=== PATIENT | male | born 1975 | race Caucasian/White ===

== ENCOUNTER 2017-01-10 09:55 | Emergency (ER) | payer OTHER ==
[2017-01-10] MEDS ORDERED: Zofran 4 MG/2 ML VIAL IV ONE (10:39)
[2017-01-10] MEDS ORDERED: PROTONIX 40 MG IV IV ONE ×2 (10:39→10:44)
[2017-01-10] MEDS ORDERED: Sodium Chloride 0.9% 1000 ML 1,000 ML IV STA (10:39)
[2017-01-10] MEDS ORDERED: Sodium Chloride 0.9% 1000 ML 1,000 ML ONE (10:44)
[2017-01-10] MEDS ORDERED: Zofran 4 MG/2 ML VIAL ONE (10:44)
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
[2017-01-10 10:49] LABS: BASOPHIL % 0.2 % (0.0-0.4); Eosinophil % 0.5 % (0.00-5.0); Granulocytes % 83.2 % (36.0-66.0); Lymphocytes % 4.8 % (24.0-44.0); Mean Cell Volume 96.3 fl (78-100); Mean Platelet Volume 10.4 fl (6-9.5); Monocytes % 11.3 % (0.0-12.0); Platelet Count 330 K/mm3 (150-450); Red Blood Count 4.61 M/mm3 (4.1-5.6); Red Cell Distribution Width 14.2 % (11.5-14.0); White Blood Count 13.1 K/mm3 (4.0-10.5)
[2017-01-10 11:26] LABS: ALBUMIN 3.9 g/dL (3.4-5.0); ALKALINE PHOSPHATASE 95 U/L (46-116); ANION GAP 11.5 MEQ/L (5-15); BILIRUBIN,TOTAL 0.3 mg/dL (0.2-1.0); BLOOD UREA NITROGEN 15 mg/dL (9-20); Carbon Dioxide 25.5 mEq/L (21-32); Glucose 106 MG/DL (70-110); LIPASE 100 U/L (73-393); SGOT/AST 17 U/L (15-37); SGPT/ALT 17 U/L (12-78); Total Protein 7.6 gm/dL (6.4-8.2)
[2017-01-10 11:59] VITALS: O2SAT 97
[2017-01-10 12:08] LABS: COMPLETE URINE MICROSCOPIC? YES; Collection Type CCMS; Ph 6.5 (5-6)
[2017-01-10] MEDS ORDERED: TORAdol 30 mg Injection IV ONE (12:08)
[2017-01-10] MEDS ORDERED: TORAdol 30 mg Injection ONE (12:09)
[2017-01-10 13:09] LABS: Bacteria FEW /HPF (NEGATIVE); Epithelial Cells RARE /HPF (FEW)
[2017-01-10 13:15] VITALS: BP 122/63; PULSE 81
[2017-01-10 17:43] LABS: CHLORIDE 105 mEq/L (98-107); SODIUM 142 mEq/L (136-145)
--- NOTE | 2017-01-10 20:46 | XRAY ---
Indication: Right flank pain. Multiple contiguous axial images obtained through the abdomen and pelvis using 80 cc Isovue-370 contrast only. Comparison: October 09, 2013. Lung bases clear. Heart is not enlarged. Noncontrasted stomach and bowel loops appear nonobstructed. Mid abdomen small bowel loops are now fluid distended with wall thickening/enhancement and minimal fluid leveling favor enteritis. Normal appendix. No free fluid/air. Stable nonobstructing right renal micro-calculi, hepatic cyst, benign chunky prostate calcifications, and previous splenectomy. Remaining liver, gallbladder, pancreas, adrenal glands, kidneys, ureters, and bladder appear unremarkable. Minimal aortic calcifications. No AAA or pathological retroperitoneal lymphadenopathy. Osseous structures intact. Impression: 1. Mid abdominal fluid distended small bowel loops with wall thickening/enhancement and fluid leveling favor enteritis. 2. Stable nonobstructing right renal micro-calculi and hepatic cyst. Comment: Preliminary interpretation was made by C. No discrepancy. CTDI 23.68
== END 2017-01-10 13:15 | disposition home or self-care (01) ==
LOC: ED 09:55
DX: N20.0 Calculus of kidney (principal); K52.9 Noninfective gastroenteritis and colitis, unspecified; R10.31 Right lower quadrant pain; R10.9 Unspecified abdominal pain; R11.0 Nausea; R10.13 Epigastric pain; R19.7 Diarrhea, unspecified
CPT/HCPCS: 36000; 36415; 74177; 80053; 81000; 82150; 83690; 85025; 96360; 96374; 96375; 99284; J1885; J2405

== ENCOUNTER 2020-02-01 06:32 | Emergency (ER) | payer OTHER ==
[2020-02-01] MEDS ORDERED: Hydromorphone 1 mg/ml Ampule IV ONE (06:39)
[2020-02-01] MEDS ORDERED: Sodium Chloride 0.9% 1000 ML 1,000 ML IV STA (06:39)
[2020-02-01] MEDS ORDERED: TORAdol 30 mg Injection IV ONE (06:39)
[2020-02-01] MEDS ORDERED: Zofran 4 MG/2 ML VIAL IV ONE (06:39)
--- NOTE | 2020-02-01 06:49 | ERPHSYRPT ---
- History of Present Illness Historian: patient Exam Limitations: no limitations Timing/Duration: today Activities at Onset: none Quality: stabbing, throbbing Abdominal Pain Onset Location: RLQ, flank (Right) Pain Radiation: groin Severity of Pain-Max: severe Severity of Pain-Current: severe Modifying Factors: Improves With: nothing Associated Symptoms: nausea Previous symptoms: same symptoms as today Hx Tetanus, Diphtheria Vaccination/Date Given: Yes (unknown) Hx Influenza Vaccination/Date Given: Yes Hx Pneumococcal Vaccination/Date Given: No <KAEL JONES - Last Filed: 02/01/20 06:43> <JAY COURTNEY - Last Filed: 02/01/20 08:27> - History of Present Illness Time Seen by Provider: 02/01/20 06:44 Physician History: PATIENT IS 44 YO MALE WITH HX OF MULTIPLE URETERAL STONES PRESENTS WITH R FLANK PAIN OF SUDDEN ONSET THIS AM AT WORK. SOME NAUSEA, NO F,C,S. NO HEMATURIA. PAIN IS 10/10. (KAEL JONES) Allergies/Adverse Reactions: No Known Drug Allergies Allergy (Unverified 02/01/20 06:56) Home Medications: Levothyroxine Sodium 100 Mcg [Synthroid 100 Mcg] 100 mcg PO DAILY 01/10/17 [History] Travel Risk - International Travel Have you traveled outside of the country in past 3 weeks: No Have you or anyone close to you been diagnosed with or: No Do your reside in a community with a known COVID-19 case?: No - Coronavirus Screening Has patient experienced Coronavirus symptoms: No <KAEL JONES - Last Filed: 02/01/20 06:43> - Review of Systems Constitutional: No Fever, No Chills Eyes: No Symptoms Ears, Nose, & Throat: No Symptoms Respiratory: No Cough, No Dyspnea Cardiac: No Chest Pain, No Edema, No Syncope Abdominal/Gastrointestinal: Abdominal Pain, Nausea, No Vomiting, No Diarrhea Genitourinary Symptoms: Flank Pain, No Dysuria Musculoskeletal: No Back Pain, No Neck Pain Skin: No Rash Neurological: No Dizziness, No Focal Weakness, No Sensory Changes Psychological: No Symptoms Endocrine: No Symptoms All Other Systems: Reviewed and Negative <KAEL JONES - Last Filed: 02/01/20 06:43> - Past Medical History Pertinent Past Medical History: Yes Respiratory History: Sleep Apnea Endocrine Medical History: Hypothyroidism Other Medical History: kidney stones. bowel obstructions - Past Surgical History Past Surgical History: Yes Gastrointestinal: Exploratory Laparoscopy Other Surgical History: spleenectomy - Social History Smoking Status: Former smoker Exposure to second hand smoke: No Drug Use: none Patient Lives Alone: No <KAEL JONES Last Filed: 02/01/20 06:43> - Physical Exam General Appearance: no apparent distress, alert Eye Exam: PERRL/EOMI, eyes nml inspection Ears, Nose, Throat Exam: normal ENT inspection, pharynx normal, moist mucous membranes Neck Exam: normal inspection, non-tender, supple, full range of motion Respiratory Exam: normal breath sounds, lungs clear, No respiratory distress Cardiovascular Exam: regular rate/rhythm, normal heart sounds Gastrointestinal/Abdomen Exam: soft, No tenderness, No mass Back Exam: normal inspection, normal range of motion, No CVA tenderness, No vertebral tenderness Extremity Exam: normal inspection, normal range of motion, pelvis stable Neurologic Exam: alert, oriented x 3, cooperative, normal mood/affect, nml cerebellar function, sensation nml, No motor deficits Skin Exam: normal color, warm, dry <KAEL JONES - Last Filed: 02/01/20 06:43> - Nursing Vital Signs Nursing Vital Signs: Initial Vital Signs Temperature 97.4 F 02/01/20 06:38 Pulse Rate 65 02/01/20 06:38 Blood Pressure 160/97 02/01/20 06:38 O2 Sat by Pulse Oximetry 98 02/01/20 06:38 Pain Scale Pain Intensity 5 - Course Nursing assessment & vital signs reviewed: Yes <LEONARDKAEL - Last Filed: 02/01/20 06:43> Ordered Tests: Active Orders 24 hr Category Date Time Status IV Insertion STAT Care 02/01/20 06:39 Active ABDOMEN AND PELVIS W/0 CONTRAS [CT] Stat Exams 02/01/20 06:40 Taken AMYLASE Stat Lab 02/01/20 05:45 Completed CBC W DIFF Stat Lab 02/01/20 06:45 Completed CMP Stat Lab 02/01/20 05:45 Completed LIPASE Stat Lab 02/01/20 05:45 Completed Lactic Acid Stat Lab 02/01/20 05:45 Completed UA W/RFX UR CULTURE Stat Lab 02/01/20 08:03 Completed Medication Summary Discontinued Medications Generic Name Dose Route Start Last Admin Trade Name Freq PRN Reason Stop Dose Admin Hydromorphone HCl 1 mg 02/01/20 06:39 02/01/20 06:54 Hydromorphone 1 Mg/Ml Ampule IV 02/01/20 06:40 1 mg STAT ONE Administration Hydromorphone HCl Confirm 02/01/20 06:50 Hydromorphone 1 Mg/Ml Ampule Administered 02/01/20 06:51 Dose 1 mg .ROUTE .STK-MED ONE Sodium Chloride 1,000 mls @ 999 mls/hr 02/01/20 06:39 02/01/20 08:09 Sodium Chloride 0.9% 1000 Ml IV 02/01/20 07:39 Infused .Q1H1M STA Infusion Sodium Chloride Confirm 02/01/20 06:50 Sodium Chloride 0.9% 1000 Ml Administered 02/01/20 06:51 Dose 1,000 mls @ ud .ROUTE .STK-MED ONE Ketorolac Tromethamine 30 mg 02/01/20 06:39 02/01/20 06:54 Toradol 30 Mg Injection IV 02/01/20 06:40 30 mg STAT ONE Administration Ketorolac Tromethamine Confirm 02/01/20 06:50 Toradol 30 Mg Injection Administered 02/01/20 06:51 Dose 30 mg .ROUTE .STK-MED ONE Ondansetron HCl 4 mg 02/01/20 06:39 02/01/20 06:54 Zofran 4 Mg/2 Ml Vial IV 02/01/20 06:40 4 mg STAT ONE Administration Ondansetron HCl Confirm 02/01/20 06:50 Zofran 4 Mg/2 Ml Vial Administered 02/01/20 06:51 Dose 4 mg .ROUTE .STK-MED ONE Lab/Rad Data: Laboratory Result Diagrams 02/01/20 06:45 02/01/20 05:45 Laboratory Results 02/01/20 02/01/20 02/01/20 Range/Units 08:03 06:45 05:45 WBC 7.9 (4.0-10.5) K/mm3 RBC 4.16 (4.1-5.6) M/mm3 Hgb 13.8 (12.5-18.0) gm/dl Hct 40.0 L (42-50) % MCV 96.2 (78-100) fl MCH 33.2 H (26-32) pg MCHC 34.5 (32-36) g/dl RDW 14.1 H (11.5-14.0) % Plt Count 332 (150-450) K/mm3 MPV 9.9 (7.5-11.0) fl Gran % 40.4 (36.0-66.0) % Eos # (Auto) 0.07 (0-0.5) Absolute Lymphs (auto) 3.47 (1.0-4.6) Absolute Monos (auto) 1.11 (0.0-1.3) Lymphocytes % 44.0 (24.0-44.0) % Monocytes % 14.1 H (0.0-12.0) % Eosinophils % 0.9 (0.00-5.0) % Basophils % 0.6 (0.0-0.4) % Absolute Granulocytes 3.19 (1.4-6.9) Basophils # 0.05 (0-0.4) Sodium 141 (137-145) mmol/L Potassium 3.5 (3.5-5.1) mmol/L Chloride 106 (98-107) mmol/L Carbon Dioxide 25 (22-30) mmol/L Anion Gap 12.4 (5-15) MEQ/L BUN 16 (9-20) mg/dL Creatinine 0.86 (0.66-1.25) mg/dL Estimated GFR > 60.0 ML/MIN Glucose 105 (74-106) mg/dL Lactic Acid (0.4-2.0) Calcium 9.4 (8.4-10.2) mg/dL Total Bilirubin 0.50 (0.2-1.3) mg/dL AST 30 (17-59) U/L ALT 20 (0-50) U/L Alkaline Phosphatase 94 (38-126) U/L Serum Total Protein 8.0 (6.3-8.2) g/dL Albumin 4.5 (3.5-5.0) g/dL Amylase 59 (30-110) U/L Lipase 75 (23-300) U/L Urine Color YELLOW (YELLOW) Urine Appearance CLEAR (CLEAR) Urine pH 5.0 (5-6) Ur Specific [place] 1.020 (1.005-1.025) Urine Protein NEGATIVE (Negative) Urine Ketones NEGATIVE (NEGATIVE) Urine Blood SMALL (0-5) Ino/ul Urine Nitrite NEGATIVE (NEGATIVE) Urine Bilirubin NEGATIVE (NEGATIVE) Urine Urobilinogen NEGATIVE (0-1) mg/dL Ur Leukocyte Esterase NEGATIVE (NEGATIVE) Urine WBC (Auto) 0-2 (0-5) /HPF Urine RBC (Auto) 6-10 (0-2) /HPF U Hyaline Cast (Auto) 3-5 (0-2) /LPF U Epithel Cells (Auto) RARE (FEW) /HPF Urine Bacteria (Auto) RARE (NEGATIVE) /HPF Urine Mucus (Auto) MODERATE (NEGATIVE) /HPF Urine Culture Reflexed NO (NO) Urine Glucose NEGATIVE (NEGATIVE) mg/dL 02/01/20 Range/Units 05:45 WBC (4.0-10.5) K/mm3 RBC (4.1-5.6) M/mm3 Hgb (12.5-18.0) gm/dl Hct (42-50) % MCV (78-100) fl MCH (26-32) pg MCHC (32-36) g/dl RDW (11.5-14.0) % Plt Count (150-450) K/mm3 MPV (7.5-11.0) fl Gran % (36.0-66.0) % Eos # (Auto) (0-0.5) Absolute Lymphs (auto) (1.0-4.6) Absolute Monos (auto) (0.0-1.3) Lymphocytes % (24.0-44.0) % Monocytes % (0.0-12.0) % Eosinophils % (0.00-5.0) % Basophils % (0.0-0.4) % Absolute Granulocytes (1.4-6.9) Basophils # (0-0.4) Sodium (137-145) mmol/L Potassium (3.5-5.1) mmol/L Chloride (98-107) mmol/L Carbon Dioxide (22-30) mmol/L Anion Gap (5-15) MEQ/L BUN (9-20) mg/dL Creatinine (0.66-1.25) mg/dL Estimated GFR ML/MIN Glucose (74-106) mg/dL Lactic Acid 0.9 (0.4-2.0) Calcium (8.4-10.2) mg/dL Total Bilirubin (0.2-1.3) mg/dL AST (17-59) U/L ALT (0-50) U/L Alkaline Phosphatase (38-126) U/L Serum Total Protein (6.3-8.2) g/dL Albumin (3.5-5.0) g/dL Amylase (30-110) U/L Lipase (23-300) U/L Urine Color (YELLOW) Urine Appearance (CLEAR) Urine pH (5-6) Ur Specific [place] (1.005-1.025) Urine Protein (Negative) Urine Ketones (NEGATIVE) Urine Blood (0-5) Ino/ul Urine Nitrite (NEGATIVE) Urine Bilirubin (NEGATIVE) Urine Urobilinogen (0-1) mg/dL Ur Leukocyte Esterase (NEGATIVE) Urine WBC (Auto) (0-5) /HPF Urine RBC (Auto) (0-2) /HPF U Hyaline Cast (Auto) (0-2) /LPF U Epithel Cells (Auto) (FEW) /HPF Urine Bacteria (Auto) (NEGATIVE) /HPF Urine Mucus (Auto) (NEGATIVE) /HPF Urine Culture Reflexed (NO) Urine Glucose (NEGATIVE) mg/dL <KAEL JONES - Last Filed: 02/01/20 06:43> - Progress Progress: improved, re-examined Counseled pt/family regarding: lab results, diagnosis, need for follow-up, rad results <JAY COURTNEY - Last Filed: 02/01/20 08:27> - Progress Progress Note: 02/01/20 08:02 46 years old male is checked out to me at end of Dr. Jones shift with pending work-up. Patient presented with right flank pain. Does have history of kidney stones in the past. He is given IV fluids and pain medication, on my evaluation patient pain is almost completely resolved. Has normal white count. Grossly unremarkable chemistries. Does have 4 mm stone in the right ureter almost 4 cm from UVJ. no UTI.I would give him Flomax here and will continue to go home. I will continue with pain meds to take as needed at home. Do not think patient needs any further work-up in the ER but needs further evaluation by urology. Discussed signs symptoms of worsening needing return to ER which he seems understanding. Stable for discharge. 02/01/20 08:27 (JAY COURTNEY) <KAEL JONES - Last Filed: 02/01/20 06:43> - Departure Departure Disposition: Home Critical Care Time: No <JAY COURTNEY - Last Filed: 02/01/20 08:27> - Departure Clinical Impression: Ureterolithiasis Condition: Stable Referrals: JORDAN CHRISTOPHER MD [Primary Care Provider] - Follow Up with PCP/3 days PIPER BHAGAT [COURTESY STAFF] - (1-2 days for re evaluation) Instructions: Kidney Stones (DC), Flank Pain Additional Instructions: Drink plenty of fluids. Take pain medications as needed. Follow-up with primary care and neurologist for reevaluation's. Return to ER for intractable pain/vomiting/fever chills etc. Prescriptions: Hydrocodone/Acetaminophen [[place] 7.5-325 Tablet] 1 each PO Q4-6HPRN PRN 3 Days # 12 tablet MDD 6 PRN Reason: Pain Tamsulosin HCl 0.4 mg [Flomax 0.4 MG] 0.4 mg PO DAILY #30 cap
[2020-02-01] MEDS ORDERED: Sodium Chloride 0.9% 1000 ML 1,000 ML ONE (06:50)
[2020-02-01] MEDS ORDERED: Hydromorphone 1 mg/ml Ampule ONE (06:50)
[2020-02-01] MEDS ORDERED: TORAdol 30 mg Injection ONE (06:50)
[2020-02-01] MEDS ORDERED: Zofran 4 MG/2 ML VIAL ONE (06:50)
[2020-02-01 07:05] LABS: Absolute Neutrophil Ct (ANC) 3.19 (1.4-6.9); BASOPHIL % 0.6 % (0.0-0.4); Basophil (Absolute #) 0.05 (0-0.4); Eosinophil % 0.9 % (0.00-5.0); Eosinophil (Absolute #) 0.07 (0-0.5); Hemoglobin 13.8 gm/dl (12.5-18.0); Lymphocyte (Absolute #) 3.47 (1.0-4.6); Mean Cell Volume 96.2 fl (78-100); Mean Corpuscular Hemoglobin 33.2 pg (26-32); Mean Corpuscular Hgb Concent. 34.5 g/dl (32-36); Mean Platelet Volume 9.9 fl (7.5-11.0); Monocyte (Absolute #) 1.11 (0.0-1.3); Monocytes % 14.1 % (0.0-12.0); Neutrophil % 40.4 % (36.0-66.0); Platelet Count 332 K/mm3 (150-450); Red Blood Count 4.16 M/mm3 (4.1-5.6); Red Cell Distribution Width 14.1 % (11.5-14.0); White Blood Count 7.9 K/mm3 (4.0-10.5)
[2020-02-01 07:39] LABS: ALBUMIN 4.5 g/dL (3.5-5.0); ALKALINE PHOSPHATASE 94 U/L (38-126); AMYLASE 59 U/L (30-110); ANION GAP 12.4 MEQ/L (5-15); BLOOD UREA NITROGEN 16 mg/dL (9-20); CHLORIDE 106 mmol/L (98-107); Calcium 9.4 mg/dL (8.4-10.2); Carbon Dioxide 25 mmol/L (22-30); Creatinine 1 0.86 mg/dL (0.66-1.25); Glucose 105 mg/dL (74-106); LIPASE 75 U/L (23-300); Potassium 3.5 mmol/L (3.5-5.1); SGOT/AST 30 U/L (17-59); SGPT/ALT 20 U/L (0-50); SODIUM 141 mmol/L (137-145)
[2020-02-01 08:08] VITALS: O2SAT 97
[2020-02-01 08:18] LABS: Appearance CLEAR (CLEAR); Bacteria RARE /HPF (NEGATIVE); Bilirubin NEGATIVE (NEGATIVE); Blood SMALL Ery/ul (0-5); Epithelial Cells RARE /HPF (FEW); Glucose NEGATIVE (NEGATIVE); Ketones NEGATIVE (NEGATIVE); Leukocyte Esterase NEGATIVE (NEGATIVE); Mucus MODERATE /HPF (NEGATIVE); Nitrite NEGATIVE (NEGATIVE); Protein,Urine Dip NEGATIVE (Negative); Urobilinogen NEGATIVE mg/dL (0-1); WBC 0-2 /HPF (0-5)
[2020-02-01 08:51] VITALS: BP 123/79; PULSE 72
--- NOTE | 2020-02-01 09:00 | XRAY ---
Indication: Right lower quadrant/right flank pain. Multiple contiguous axial images obtained through the abdomen and pelvis without contrast using renal stone protocol. Comparison: January 10, 2017. Lung bases demonstrates minimal bilateral dependent atelectasis without focal infiltrates or effusion. Heart is not enlarged. New 4-5 mm distal right ureter calculus approximately 4 cm proximal to the UVJ. Proximal right ureter is minimally prominent and there is mild hydronephrosis consistent with partial obstructive uropathy. No perinephric fluid. There are 2 additional sub-5 mm right renal micro-calculus. No renal calculus or evidence for obstructive uropathy on the left. Noncontrasted stomach and bowel loops appear nonobstructed. Normal air-filled appendix. Stable mild sigmoid diverticulosis, tiny hepatic cyst near the dome of the diaphragm, and splenectomy. Remaining liver, gallbladder, pancreas, adrenal glands, kidneys, ureters, and bladder appear unremarkable for noncontrast exam. There remains minimal aortic calcifications without AAA. Osseous structures intact with now mild L4-S1 degenerative vacuum disc phenomena. Impression: 1. New 4-5 mm distal right ureter calculus producing partial obstruction. Additional right renal micro-calculi. 2. Stable sigmoid diverticulosis and hepatic cyst.
== END 2020-02-01 08:50 | disposition home or self-care (01) ==
LOC: ED 06:32
DX: N20.1 Calculus of ureter (principal); Z87.442 Personal history of urinary calculi
CPT/HCPCS: 36000; 36415; 74176; 80053; 81001; 82150; 83605; 83690; 85025; 96360; 96374; 96375; 99284; J1170; J1885; J2405

== ENCOUNTER 2024-04-06 05:50 | Day surgery (SDC) | payer OTHER ==
[2024-04-06] MEDS: Lactated Ringers 1,000 ML IV SCH (06:18)
[2024-04-06] MEDS ORDERED: Versed 2 MG/2 ML Injection ONE (07:28)
[2024-04-06] MEDS ORDERED: DIPRIVAN 200 MG/20 ML IV ONE ×3 (07:28→08:10)
[2024-04-06] MEDS ORDERED: Xylocaine-Mpf 2% 5 Ml Vial ONE (07:28)
[2024-04-06] MEDS ORDERED: Lactated Ringers 1,000 ML IV ONE (08:22)
[2024-04-06 08:43] VITALS: BP 133/94; PULSE 50; RESP 18; TEMP 97.2; O2SAT 98
--- NOTE | 2024-04-06 10:52 | OP ---
SURGERY DATE/TIME: 04/06/2024 0741 PREOPERATIVE DIAGNOSES: 1) Gastroesophageal reflux disease. 2) Screening colonoscopy. POSTOPERATIVE DIAGNOSES: 1) Mild distal esophagitis. 2) Colon polyps x7. PROCEDURES: 1) EGD. 2) Colonoscopy. SURGEON: Balta Da Silva M.D. ANESTHESIA: MAC by Fabian Villanueva CRNA. QUANTITATIVE BLOOD LOSS: Minimal. SPECIMENS: 1) There were two cold forceps biopsies from the gastroesophageal junction. 2) Seven hot forceps polypectomies. DESCRIPTION OF PROCEDURE: After informed written consent was obtained, the patient was taken to the endoscopy suite. He was placed in left lateral decubitus position and a bite block inserted. Anesthesia was titrated to desired level of consciousness and the endoscope was inserted in the posterior oropharynx. Under direct visualization the esophageal mucosal had a normal appearance. Upon entry into the stomach, there were normal rugated gastric mucosa free of any lesions or defects. There were no focal ulcerations, evidence of bleeding or lesion. Pylorus was traversed and the duodenum had a normal mucosal appearance as well. Retroflexion showed no significant hiatal hernia or other pathology. Upon withdrawal on inspection of the gastroesophageal junction there was some very minimal esophagitis-type changes in the distal esophagus. There were two cold forceps biopsies taken from the gastroesophageal junction region with minimal blood loss. The remainder of the exam was unremarkable. The scope was removed and the scopes were switched. Digital rectal exam showed normal sphincter tone and no internal lesions. The scope was inserted in the rectum and sequentially the entire colonic mucosa was traversed. The level of the cecum was reached and verified with direct visualization of the ileocecal valve. Upon withdrawal there were three sessile polyps in the distal sigmoid colon which were grasped with forceps cauterized and removed in entirety and retrieved for pathology testing. Upon further withdrawal, there were three more sessile polyps in the rectum which were likewise removed with hot forceps with minimal blood loss and complete removal of the lesions. Prior to withdrawal retroflexion was performed and showed no other internal lesions. The scope was removed and the patient was transferred to the recovery room in good condition. He has been advised to follow up in a week for pathology results.
== END 2024-04-06 08:54 | disposition home or self-care (01) ==
LOC: SDC 05:50
PROVIDERS: ATTEND Family Medicine
DX: Z12.11 Encounter for screening for malignant neoplasm of colon (principal); K21.9 Gastro-esophageal reflux disease without esophagitis; K20.90 Esophagitis, unspecified without bleeding; D12.5 Benign neoplasm of sigmoid colon; K62.1 Rectal polyp
CPT/HCPCS: J2250; J2704